=== PATIENT | female | born 1990 | race Two or more races ===

== ENCOUNTER 2021-03-14 17:33 | Emergency (ER) | payer OTHER ==
[2021-03-14 17:50] VITALS: BP 121/86; PULSE 100; BMI 22.4
[2021-03-14 19:29] LABS: EPI CELLS 14 /uL (0-25.1); HYALINE CASTS 0 /uL (0-3.1); PH,URINE 6.5 (5.0-8.0); URINE APPEARANCE CLEAR; URINE BACTERIA 1091 /uL (0-1359); URINE BILIRUBIN NEGATIVE (NEGATIVE); URINE COLOR YELLOW; URINE GLUCOSE (UA) NEGATIVE (NEGATIVE); URINE KETONE 1+ (NEGATIVE); URINE LEUK ESTERASE 1+ (NEGATIVE); URINE NITRITE NEGATIVE (NEGATIVE); URINE PROTEIN NEGATIVE (NEGATIVE); URINE RBC 16 /uL (0-23.9); URINE UROBILINOGEN 0.2 mg/dL (0.2-1.0); URINE WBC 22 /uL (0-25.8)
== END 2021-03-14 22:30 | disposition home or self-care (01) ==
LOC: JER 17:33
DX: N83.11 Corpus luteum cyst of right ovary (principal); R78.81 Bacteremia
CPT/HCPCS: 76830-TC; 81003; 84703; 99284-25